=== PATIENT | female | born 1965 | race Caucasian/White ===

== ENCOUNTER 2017-02-24 12:14 | Emergency (ER) | payer MEDICAID ==
[~2017-02-24] VITALS: Ht 165.1 cm; Wt 72.0 kg
[~2017-02-24 12:14] MED LIST: ALBUAER3 INH; AMLO5TAB2 PO; ATOR1TAB18 PO; FERR325T PO; FLUT1SPR22 NASAL; LAMO25TA PO; LORA-361 PO; MECL12.574 PO; MUCI600T PO; ONDA1TAB16 PO; PANT40TA3 PO; QUET50TA PO; SYMB160A INH; TRIA.1%T TOPICAL
[2017-02-24] MEDS ORDERED: SODIUM CHLORIDE 0.9% FLUSH 10 ML FLUSH IV FLUSH PRN (12:30)
[2017-02-24] MEDS ORDERED: PROCHLORPERAZINE INJ 10 MG/2 ML VIAL IV PUSH ONE (12:30)
[2017-02-24] MEDS ORDERED: KETOROLAC TROMETHAMINE 30 MG/ML (IVP) VIAL IV PUSH ONE (12:30)
[2017-02-24] MEDS ORDERED: SODIUM CHLOR 0.9% 1000 ML INJ 1,000 ML IV SCH (12:30)
[2017-02-24] MEDS ORDERED: diphenhydrAMINE HCL 50 MG/ML VIAL IV PUSH ONE (12:30)
--- NOTE | 2017-02-24 12:32 | PD ---
HPI Chief Complaint: Chest Pain Time Seen by Provider: 12:32 Travel History International Travel<30 days: No Contact w/Intl Traveler<30days: No Traveled to known affect area: No History of Present Illness HPI 51 year-old female with history of hypertension, tobacco dependency, presents to emergency department for evaluation of multiple vague complaints. Patient states that she has been dizzy with a mild headache. She did see her primary care provider earlier this week for this who is treating her for BPPV. She states that the medicine has helped some but she has also been having an epigastric pain with no nausea or vomiting. She also reports mouth pain following an oral surgery and believes she may have thrush. She denies any fever or chills. No nausea or vomiting. No focal deficits or weakness. She does state that she went to [facility] for similar complaints 3 days ago and believes that she was "blown off." She states that " they did not even work her up for pneumonia." I asked her why she thought she had pneumonia she told me because she has been coughing. She states that she has had a cough that is intermittently productive. No other symptoms to report. PFSH Past Medical History Cardiovascular Problems: Yes (htn) ?: Not LMP: 01/25/17 Past Surgical History Hysterectomy: Yes Social History Alcohol Use: No Tobacco Use: Yes Substance Use: No Allergies-Medications (Allergen,Severity, Reaction): Coded Allergies: No Known Allergies (Unverified , 02/13/17) Reported Meds & Prescriptions Reported Meds & Active Scripts Active Claritin (Loratadine) 10 Mg Tab 10 Mg PO DAILY Symbicort Inh (Budesonide/Formoterol Fumarate) 160-4.5 Mcg/Act Aero 1 Puff INH Q12HR Ferrous Sulfate 325 Mg Tab 325 Mg PO DAILY Pantoprazole (Pantoprazole Sodium) 40 Mg Tab 40 Mg PO DAILY Allergy Nasal [place]akeslee 24 Ho (Fluticasone Propionate (Nasal)) 50 Mcg/Act Spr 1 [place]akeslee NASAL BID Atorvastatin (Atorvastatin Calcium) 80 Mg Tab 80 Mg PO HS Amlodipine (Amlodipine Besylate) 5 Mg Tab 5 Mg PO DAILY Proair Hfa 8.5 GM Inh (Albuterol Sulfate) 90 Mcg/Act Aer 2 Puff INH Q6H PRN 108 mcg/actuation Ondansetron (Ondansetron HCl) 4 Mg Tab 4 Mg PO Q8HR PRN Quetiapine Fumarate 50 mg (Quetiapine Fumarate) 50 Mg Tab 50 Mg PO BID Lamotrigine 25 Mg Tab 100 Mg PO BID Review of Systems Except as stated in HPI: all other systems reviewed are Neg Physical Exam Narrative GENERAL: Well-nourished female patient, in no acute distress SKIN: Focused skin assessment warm/dry. HEAD: Atraumatic. Normocephalic. EYES: Pupils equal and round. No scleral icterus. No injection or drainage. ENT: No nasal bleeding or discharge. Mucous membranes pink and moist. DENTAL: No loose or chipped teeth. No malocclusion. There appears to be extraction of the second molars bilaterally. No significant erythema or edema. No indication of thrush. NECK: Trachea midline. No JVD. CARDIOVASCULAR: Regular rate and rhythm. No murmur appreciated. RESPIRATORY: No accessory muscle use. Clear to auscultation. Breath sounds equal bilaterally. GASTROINTESTINAL: Abdomen soft, non-tender, nondistended. Hepatic and splenic margins not palpable. MUSCULOSKELETAL: No obvious deformities. No clubbing. No cyanosis. No edema. NEUROLOGICAL: Awake and alert. No obvious cranial nerve deficits. Motor grossly within normal limits. Normal speech. PSYCHIATRIC: Appropriate mood and affect; insight and judgment normal. Data Data Last Documented VS Vital Signs Date Time Temp Pulse Resp B/P Pulse Ox O2 Delivery O2 Flow Rate FiO2 02/24/17 13:30 98 Orders Complete Blood Count With Diff (02/24/17 12:30) Comprehensive Metabolic Panel (02/24/17 12:30) Lipase (02/24/17 12:30) Prothrombin Time / Inr (Pt) (02/24/17 12:30) Act Partial Throm Time (Ptt) (02/24/17 12:30) Urinalysis - C+S If Indicated (02/24/17 12:30) Iv Access Insert/Monitor (02/24/17 12:30) Ecg Monitoring (02/24/17 12:30) Oximetry (02/24/17 12:30) Sodium Chlor 0.9% 1000 Ml Inj (Ns 1000 M (02/24/17 12:30) Sodium Chloride 0.9% Flush (Ns Flush) (02/24/17 12:30) Ckmb (Isoenzyme) Profile (02/24/17 12:30) Magnesium (Mg) (02/24/17 12:30) Troponin I (02/24/17 12:30) Chest, Single Ap (02/24/17 12:30) Ketorolac Inj (Toradol Inj) (02/24/17 12:30) Diphenhydramine Inj (Benadryl Inj) (02/24/17 12:30) Prochlorperazine Inj (Compazine Inj) (02/24/17 12:30) Chlorhexidine 0.12% Liq (Peridex 0.12% L (02/24/17 12:45) CKMB (02/24/17 12:40) CKMB% (02/24/17 12:40) Labs Laboratory Tests Test 02/24/17 02/24/17 12:40 13:30 White Blood Count 9.3 TH/MM3 Red Blood Count 4.85 MIL/MM3 Hemoglobin 13.9 GM/DL Hematocrit 41.1 % Mean Corpuscular Volume 84.6 FL Mean Corpuscular Hemoglobin 28.7 PG Mean Corpuscular Hemoglobin 33.9 % Concent Red Cell Distribution Width 23.0 % Platelet Count 342 TH/MM3 Mean Platelet Volume 7.3 FL Neutrophils (%) (Auto) 59.7 % Lymphocytes (%) (Auto) 34.0 % Monocytes (%) (Auto) 4.4 % Eosinophils (%) (Auto) 0.8 % Basophils (%) (Auto) 1.1 % Neutrophils # (Auto) 5.6 TH/MM3 Lymphocytes # (Auto) 3.2 TH/MM3 Monocytes # (Auto) 0.4 TH/MM3 Eosinophils # (Auto) 0.1 TH/MM3 Basophils # (Auto) 0.1 TH/MM3 CBC Comment AUTO DIFF Differential Comment AUTO DIFF CONFIRMED Ovalocytes 1+ Prothrombin Time 10.6 SEC Prothromb Time International 1.0 RATIO Ratio Activated Partial 29.9 SEC Thromboplast Time Sodium Level 141 MEQ/L Potassium Level 4.2 MEQ/L Chloride Level 109 MEQ/L Carbon Dioxide Level 22.9 MEQ/L Anion Gap 9 MEQ/L Blood Urea Nitrogen 5 MG/DL Creatinine 0.93 MG/DL Estimat Glomerular Filtration 64 ML/MIN Rate Random Glucose 86 MG/DL Calcium Level 9.6 MG/DL Magnesium Level 2.1 MG/DL Total Bilirubin 0.5 MG/DL Aspartate Amino Transf 27 U/L (AST/SGOT) Alanine Aminotransferase 28 U/L (ALT/SGPT) Alkaline Phosphatase 136 U/L Total Creatine Kinase 108 U/L Creatine Kinase MB 0.6 NG/ML Troponin I LESS THAN 0.02 NG/ML Total Protein 7.3 GM/DL Albumin 4.0 GM/DL Lipase 101 U/L Urine Color LIGHT-YELLOW Urine Turbidity CLEAR Urine pH 8.0 Urine Specific [place] 1.006 Urine Protein NEG mg/dL Urine Glucose (UA) NEG mg/dL Urine Ketones NEG mg/dL Urine Occult Blood NEG Urine Nitrite NEG Urine Bilirubin NEG Urine Urobilinogen LESS THAN 2.0 MG/DL Urine Leukocyte Esterase NEG Urine RBC LESS THAN 1 /hpf Urine WBC 1 /hpf Urine Squamous Epithelial 5 /hpf Cells Microscopic Urinalysis Comment CULT NOT INDICATED MDM Medical Decision Making Medical Screen Exam Complete: Yes Emergency Medical Condition: Yes Medical Record Reviewed: Yes Differential Diagnosis Indigestion versus ACS versus elect slight abnormality versus postop pain Narrative Course 51 year-old female presents to the emergency department for evaluation. Patient appears without distress. Her vital signs are stable. She is not hypertensive. She is not tachycardic. He does appear to have had some teeth extractions however there is no indication of infection or thrush. CBC and CMP are without acute concern. Troponin is less than 0.02. Chest x-ray is unremarkable. Urinalysis is unremarkable. I discussed with the patient observation to the chest pain center. The patient states that she has a business solutions consultant that she has an appointment on . She states that she would like to go home. I discussed the patient with my attending physician who agrees that this would be okay for the patient. She agrees to return immediately with any acute worsening of symptoms. Diagnosis Primary Impression: Epigastric pain Additional Impressions: Dizziness Oral pain H/O oral surgery Referrals: [facility] Primary Care Physician Patient Instructions: Acute Headache (ED), Epigastric Pain (ED), General Instructions Additional Instructions: Continue medication as already prescribed Follow-up with your primary care provider Keep your appointment with your business solutions consultant Return immediately with any acute worsening of symptoms Med/Other Pt SpecificInfo: No Change to Meds Disposition: 01 DISCHARGE HOME Condition: Stable Kavya Barrios Feb 24, 2017 12:32
[2017-02-24] MEDS ORDERED: CHLORHEXIDINE GLUCONATE 0.12% 15 ML CUP SWISH-SPIT ONE (12:45)
--- NOTE | 2017-02-24 12:51 | RADRPT ---
EXAM DATE/TIME: 02/24/2017 12:28 [facility] COMPARISON: No previous studies available for comparison. INDICATIONS : Chest pain, shortness of breath, and cough. MEDICAL HISTORY : Chronic obstructive pulmonary disease. SURGICAL HISTORY : None. ENCOUNTER: Initial ACUITY: 3 days PAIN SCORE: 4/10 LOCATION: Bilateral chest FINDINGS: A single view of the chest demonstrates the lungs to be symmetrically aerated without evidence of mas s, infiltrate or effusion. The cardiomediastinal contours are unremarkable. Osseous structures are intact. CONCLUSION: Normal examination. Hector Hadley MD on February 24, 2017 at 12:49 Board Certified Radiologist. This report was verified electronically.
[2017-02-24 12:55] VITALS: BP 131/78; PULSE 108; RESP 20; O2SAT 99
[2017-02-24 13:07] LABS: AUTOMATED NEUTROPHIL # 5.6 TH/MM3 (1.8-7.7); BASOPHIL # 0.1 TH/MM3 (0-0.2); BASOPHIL % 1.1 % (0.0-2.0); EOSINOPHIL # 0.1 TH/MM3 (0-0.4); EOSINOPHIL % 0.8 % (0.0-4.0); HEMATOCRIT 41.1 % (35.0-46.0); LYMPHOCYTE # 3.2 TH/MM3 (1.0-4.8); MEAN CELL VOLUME 84.6 FL (80.0-100.0); MEAN CORPUSCULAR HEMOGLOBIN 28.7 PG (27.0-34.0); MEAN CORPUSCULAR HGB CONC 33.9 % (32.0-36.0); MONO % 4.4 % (0.0-8.0); NEUT % 59.7 % (16.0-70.0); PLATELET COUNT 342 TH/MM3 (150-450); RED BLOOD COUNT 4.85 MIL/MM3 (4.00-5.30); WHITE BLOOD COUNT 9.3 TH/MM3 (4.0-11.0)
[2017-02-24 13:10] LABS: HEMO FLAGS AUTO DIFF
[2017-02-24 13:15] LABS: APTT (PATIENT) 29.9 SEC (24.3-30.1); PROTHROMBIN TIME - PATIENT 10.6 SEC (9.8-11.6)
[2017-02-24 13:30] VITALS: O2SAT 98
[2017-02-24 13:41] LABS: OVALOCYTES 1+ (NORMAL); SCAN/DIFF AUTO DIFF CONFIRMED
[2017-02-24 13:47] LABS: ALKALINE PHOSPHATASE 136 U/L (45-117); ALT (GPT) 28 U/L (10-53); ANION GAP 9 MEQ/L (5-15); BICARBONATE 22.9 MEQ/L (21.0-32.0); BLOOD UREA NITROGEN 5 MG/DL (7-18); CHLORIDE 109 MEQ/L (98-107); CREATINE KINASE 108 U/L (26-192); GLOMERULAR FILTRATION RATE 64 ML/MIN (>89); SODIUM (NA) 141 MEQ/L (136-145); TOTAL BILIRUBIN ADULT 0.5 MG/DL (0.2-1.0)
[2017-02-24 13:48] LABS: AST (GOT) 27 U/L (15-37); MAGNESIUM 2.1 MG/DL (1.5-2.5); POTASSIUM 4.2 MEQ/L (3.5-5.1)
[2017-02-24 14:00] LABS: CKMB 0.6 NG/ML (0.5-3.6)
[2017-02-24 14:14] LABS: BLOOD, URINE NEG (NEG); COMMENT (UR) CULT NOT INDICATED; CULTURE IF INDICATED CULT NOT INDICATED; GLUCOSE,URINE NEG (NEG); KETONE, URINE NEG (NEG); NITRITE,URINE NEG (NEG); SQUAMOUS EPITHELIAL CELL URINE 5 /hpf (0-5); URINE COLOR LIGHT-YELLOW (YELLW/STRAW)
[2017-02-24 14:30] VITALS: BP 131/83; PULSE 89; RESP 18; O2SAT 100
[2017-03-07] MEDS ORDERED: GUAI1TAB PO (09:15)
[2017-04-12] MEDS ORDERED: AUGM875T3 PO (15:28)
[2017-04-21] MEDS ORDERED: MUCI30TA2 PO (07:54)
[2017-04-25] MEDS ORDERED: NEBULIZER1 MI1 (13:53)
[2017-04-25] MEDS ORDERED: GUAI600T11 PO (14:00)
== END 2017-02-24 15:19 | disposition home or self-care (01) ==
LOC: NEPE 12:14
DX: R10.13 Epigastric pain (principal); R42 Dizziness and giddiness; G89.18 Other acute postprocedural pain; K08.89 Other specified disorders of teeth and supporting structures
CPT/HCPCS: 71010; 80053; 81001; 82550; 82552; 83690; 83735; 84484; 85025; 85610; 85730; 96361; 96374; 96375; 99284; J0780; J1200; J1885; J7030